=== PATIENT | female | born 1940 | race Caucasian/White ===

== ENCOUNTER 2019-04-20 12:02 | Observation (INO) | payer MEDICARE, OTHER ==
[~2019-04-20] VITALS: Ht 162.6 cm; Wt 65.0 kg
[~2019-04-20 12:02] MED LIST: ALLO100T25 PO; ATE25T PO; FOLI0.4T2 PO; GABA-330 PO; METH2.5T55 PO; OSC500T PO; PROC5TAB56 PO; TRAM50TA2 PO; ZES10T PO; ZOC40T PO
--- NOTE | 2019-04-20 12:33 | NUR ---
PATIENT REPORTS HAVING THE "FLU" 3 WEEKS AGO, AROUND THE SAME TIME HER "HIGH" HEART RATE BOUTS STARTED. PATIENT'S DAUGHTER REPORTS THAT AT THE TIMES OF HER FEELING THE HIGH HEART RATE: DAUGHTER TOOK HER BP AND HR: THE HIGHEST HR WAS 109
[2019-04-20] MEDS ORDERED: aspirin 81mg tab.chew PO ONE (12:45)
[2019-04-20 13:07] LABS: BASOPHILS # (AUTO) 0.1 X10'3 (0-0.2); BASOPHILS % (AUTO) 1.4 % (0-1); EOSINOPHILS # (AUTO) 0.2 X10'3 (0-0.9); EOSINOPHILS % (AUTO) 3.2 % (0-6); HEMATOCRIT 38.1 % (35.0-45.0); HEMOGLOBIN 12.7 g/dl (12.0-16.0); LYMPHOCYTES # (AUTO) 2.9 X10'3 (1.1-4.8); LYMPHOCYTES % (AUTO) 43.1 % (21-51); MEAN CORPUSCULAR HEMOGLOBIN 33.5 PG (27.0-31.0); MEAN CORPUSCULAR HGB CONC 33.4 g/dL (33.0-36.5); MEAN CORPUSCULAR VOLUME 100.6 FL (78-98); MEAN PLATELET VOLUME 7.4 FL (7.4-10.4); MONOCYTES # (AUTO) 0.6 X10'3 (0-0.9); MONOCYTES % (AUTO) 8.8 % (2-12); NEUTROPHILS # (AUTO) 2.9 X10'3 (1.8-7.7); NEUTROPHILS % (AUTO) 43.5 % (42-75); PLATELET COUNT 302 X10'3 (140-440); RED BLOOD COUNT 3.79 X10'6 (4.20-5.60); RED CELL DISTRIBUTION WIDTH 14.9 % (11.5-14.5); WHITE BLOOD COUNT 6.8 X10'3 (4.5-11.0)
[2019-04-20 13:20] LABS: PARTIAL THROMBOPLASTIN TIME 25 SECONDS (22-32)
[2019-04-20 13:21] LABS: ALANINE AMINOTRANSFERASE 29 U/L (12-78); ALBUMIN 3.8 G/DL (3.4-5.0); ALBUMIN/GLOBULIN RATIO 1.1 (1.1-1.5); ALKALINE PHOSPHATASE 55 IU/L (46-116); ANION GAP 8 (8-16); ASPARTATE AMINO TRANSFERASE 40 U/L (10-37); BILIRUBIN,TOTAL 0.4 MG/DL (0.1-1.0); BLOOD UREA NITROGEN 16 MG/DL (7-18); CALCIUM 9.2 MG/DL (8.5-10.1); CHLORIDE 108 MMOL/L (99-107); CREATININE 1.14 MG/DL (0.40-0.90); GLUCOSE 89 MG/DL (70-104); POTASSIUM 4.6 MMOL/L (3.5-5.1); SODIUM 142 MMOL/L (135-145); TOTAL CARBON DIOXIDE 25.7 MMOL/L (24-32); TOTAL PROTEIN 7.3 G/DL (6.4-8.2); eGFR 46 ML/MIN
[2019-04-20 13:32] LABS: MAGNESIUM 2.3 MG/DL (1.5-2.4)
[2019-04-20] MEDS ORDERED: acetaminophen 325mg tablet PO PRN (14:15)
[2019-04-20] MEDS ORDERED: magnesium Cl slow-release 64mg tablet PO PRN (14:15)
[2019-04-20] MEDS ORDERED: magnesium 2GM in 50ml NS 50 ML IV PRN (14:15)
[2019-04-20] MEDS ORDERED: magnesium hydroxide 30ml (MOM) UD suspension PO PRN (14:15)
[2019-04-20] MEDS ORDERED: mag hydrox/Alum hydrox/simeth 30ml oral suspension PO PRN (14:15)
[2019-04-20] MEDS ORDERED: ondansetron/PF 4mg/2ml inj IV PRN (14:15)
[2019-04-20] MEDS ORDERED: potassium CL 10mEq/100ml bag 100 ML IV PRN ×2 (14:15)
[2019-04-20] MEDS ORDERED: potassium Cl 20 mEq SR tablet PO PRN ×2 (14:15)
[2019-04-20] MEDS ORDERED: magnesium 4gm in 100ml NS 100 ML IV PRN (14:15)
--- NOTE | 2019-04-20 14:19 | NUR ---
GAVE MED LIST TO PHARMACIST
[2019-04-20] MEDS ORDERED: FOLI1TAB16 PO (14:22)
[2019-04-20] MEDS ORDERED: CHOL10002 PO (14:22)
[2019-04-20] MEDS ORDERED: ALPR0.5T8 PO (14:22)
[2019-04-20] MEDS ORDERED: ALLO100T PO (14:23)
--- NOTE | 2019-04-20 15:44 | NUR ---
PHONE REPORT TO BEKA FLEMING, PATIENT GOING TO ROOM 356B.
[2019-04-20 16:16] VITALS: BP 131/66
--- NOTE | 2019-04-20 16:22 | NUR ---
Patient in room [facility]. I have received report from bradley FLEMING and had the opportunity to ask questions and assume patient care.
--- NOTE | 2019-04-20 17:48 | NUR ---
patient settled in room 356b, is for oesophagram tomorrow 04/21/19. Appears stable, daughter at bedside.
[2019-04-20 18:00] VITALS: BP 115/69
[2019-04-20] MEDS ORDERED: traMADol 50MG tablet PO PRN (18:50)
[2019-04-20] MEDS ORDERED: ALPRAZolam 0.5mg tablet PO PRN (18:50)
[2019-04-20] MEDS ORDERED: atorvastatin 20mg tablet PO SCH (21:00)
[2019-04-20] MEDS ORDERED: allopurinol 100mg tablet PO SCH (21:00)
[2019-04-20] MEDS: gabapentin 400mg capsule PO SCH (21:13)
[2019-04-20] MEDS ORDERED: temazepam 15mg capsule PO PRN (22:25)
[2019-04-20 23:28] VITALS: BP 94/53
[2019-04-21] MEDS: normal saline 1000ml 1,000 ML IV SCH ×2 (00:38→10:14)
[2019-04-21 00:59] LABS: BASOPHILS % (AUTO) 0.6 % (0-1); EOSINOPHILS # (AUTO) 0.3 X10'3 (0-0.9); EOSINOPHILS % (AUTO) 4.4 % (0-6); HEMATOCRIT 34.9 % (35.0-45.0); HEMOGLOBIN 11.7 g/dl (12.0-16.0); MEAN CORPUSCULAR HEMOGLOBIN 33.1 PG (27.0-31.0); MEAN CORPUSCULAR HGB CONC 33.4 g/dL (33.0-36.5); MEAN CORPUSCULAR VOLUME 99.1 FL (78-98); MEAN PLATELET VOLUME 7.4 FL (7.4-10.4); MONOCYTES # (AUTO) 0.8 X10'3 (0-0.9); MONOCYTES % (AUTO) 10.7 % (2-12); NEUTROPHILS # (AUTO) 3.4 X10'3 (1.8-7.7); NEUTROPHILS % (AUTO) 44.3 % (42-75); PLATELET COUNT 282 X10'3 (140-440); RED BLOOD COUNT 3.52 X10'6 (4.20-5.60); WHITE BLOOD COUNT 7.6 X10'3 (4.5-11.0)
[2019-04-21 01:04] LABS: CLARITY,URINE CLEAR (Clear); COLOR,URINE YELLOW (Yellow); GLUCOSE, URINE NEGATIVE (Neg); KETONES,URINE NEGATIVE (Neg); LEUKOCYTE ESTERASE ,URINE NEGATIVE (Neg); NITRITES, URINE POSITIVE (Neg); OCCULT BLOOD,URINE NEGATIVE (Neg); PROTEIN,URINE NEGATIVE (Neg); UROBILINOGEN,URINE 0.2 E.U/dL (0.2-1.0)
[2019-04-21 01:11] LABS: ALANINE AMINOTRANSFERASE 25 U/L (12-78); ALBUMIN 3.4 G/DL (3.4-5.0); ALBUMIN/GLOBULIN RATIO 1.2 (1.1-1.5); ALKALINE PHOSPHATASE 52 IU/L (46-116); ANION GAP 10 (8-16); ASPARTATE AMINO TRANSFERASE 31 U/L (10-37); BILIRUBIN,TOTAL 0.4 MG/DL (0.1-1.0); BLOOD UREA NITROGEN 20 MG/DL (7-18); BUN/CREATININE RATIO 16.4 (6.6-38.0); CALCIUM 8.6 MG/DL (8.5-10.1); CHLORIDE 107 MMOL/L (99-107); CREATININE 1.22 MG/DL (0.40-0.90); GLUCOSE 99 MG/DL (70-104); POTASSIUM 4.1 MMOL/L (3.5-5.1); SODIUM 142 MMOL/L (135-145); TOTAL PROTEIN 6.3 G/DL (6.4-8.2); eGFR 42 ML/MIN
[2019-04-21 01:12] LABS: UA COLLECTION TYPE VOIDED
[2019-04-21 01:14] LABS: CHOL/HDL RATIO 2.3 (0.00-4.99); CHOLESTEROL 133 MG/DL (0-200); HDL CHOLESTEROL 57 MG/DL (35-60); LDL CHOLESTEROL 69 MG/DL (50-100); MAGNESIUM 1.9 MG/DL (1.5-2.4); TRIGLYCERIDES 65 MG/DL (20-135)
[2019-04-21 01:21] LABS: BACTERIA,URINE 4+ /HPF (Neg); RBC,URINE NONE SEEN /HPF (0-2); SQUAMOUS EPITHELIAL CELL,UR FEW /LPF (FEW); WBC,URINE 0-4 /HPF (0-4)
[2019-04-21] MEDS ORDERED: CefTRIAXone/D5W-Rocephin 1gm 50 ML IV ONE (03:35)
--- NOTE | 2019-04-21 06:30 | NUR ---
Problems reprioritized. Patient report given, questions answered & plan of care reviewed with BERNADETTE Correa.
--- NOTE | 2019-04-21 06:30 | NUR ---
Patient in room [facility] 356. I have received report from Dominique Boothe RN and had the opportunity to ask questions and assume patient care.
[2019-04-21 07:20] VITALS: BP 103/64
[2019-04-21] MEDS ORDERED: folic acid 1mg tablet PO SCH (08:00)
[2019-04-21] MEDS ORDERED: enoxaparin 40mg/0.4ml syringe SQ SCH (08:00)
[2019-04-21] MEDS ORDERED: lisinopril 10 MG tablet PO SCH (08:00)
[2019-04-21] MEDS ORDERED: vitamin D (cholecalciferol) 1,000 unit tablet PO SCH (08:00)
[2019-04-21] MEDS ORDERED: calcium carbonate 500mg tablet PO SCH (08:00)
[2019-04-21] MEDS ORDERED: K and/or MAG REPLACEMENT MC SCH (08:00)
--- NOTE | 2019-04-21 09:39 | NUR ---
Discussed with Dr. Deng the procedures scheduled for patient. Received order to cancel Esophogram and bedside swallow and to provide patient HH diet. Will continue to monitor.
[2019-04-21 09:50] VITALS: BP_SYST 107; BP_SYST 110; BP_SYST 114; BP_DIAS 62; BP_DIAS 71; BP_DIAS 73
[2019-04-21] MEDS ORDERED: carVEDilol 3.125mg tablet PO SCH (09:50)
--- NOTE | 2019-04-21 10:00 | NUR ---
Spoke with Dr. Deng, Chest CT cancelled as well. Lisinopril cancelled and Coreg to be initiated per Dr. Deng order. Will continue to monitor.
[2019-04-21] MEDS: gabapentin 400mg capsule PO SCH (10:18)
[2019-04-21 11:30] VITALS: BP 107/59
[2019-04-21] MEDS ORDERED: COR3.125T PO (11:45)
--- NOTE | 2019-04-21 12:31 | NUR ---
Patient is discharged per MD order, received discharge instructions and IV cannula removed with cannula intact. Family is present at bedside, will be taking her home. Patient and family notified to tell staff when ready to leave due to patient requesting to eat lunch. Patient is alert and oriented and stable for discharge.
--- NOTE | 2019-04-21 13:08 | NUR ---
Patient Left at 1255 by wheelchair with auxillary, daughter in lobby waiting. Belongings with patient and family.
[2019-04-22] MEDS ORDERED: CefTRIAXone/D5W-Rocephin 1gm 50 ML IV SCH (08:00)
== END 2019-04-21 12:57 | disposition home health service (06) ==
LOC: ER 12:02 → SUR 3N 15:53
PROVIDERS: ADMIT Family Medicine; ATTEND Family Medicine
DX: R07.89 Other chest pain (principal); R00.2 Palpitations; J44.9 Chronic obstructive pulmonary disease, unspecified; M85.80 Other specified disorders of bone density and structure, unspecified site; R94.31 Abnormal electrocardiogram [ECG] [EKG]; M06.9 Rheumatoid arthritis, unspecified; E78.5 Hyperlipidemia, unspecified; I10 Essential (primary) hypertension; G62.9 Polyneuropathy, unspecified; M10.9 Gout, unspecified; E89.0 Postprocedural hypothyroidism; Z90.710 Acquired absence of both cervix and uterus; Z90.49 Acquired absence of other specified parts of digestive tract; Z90.81 Acquired absence of spleen; Z96.651 Presence of right artificial knee joint; Z87.891 Personal history of nicotine dependence; Z86.018 Personal history of other benign neoplasm; Z79.899 Other long term (current) drug therapy
CPT/HCPCS: 36415; 71045; 76536; 80053; 80061; 81001; 83735; 83880; 84439; 84443; 84484; 85025; 85610; 85730; 87077; 87081; 87088; 87186; 93005; 93306; 96365; 96372; 99284; G0378; J0696; J7030; J1650

== ENCOUNTER 2022-07-12 05:26 | Inpatient (IN) | payer MEDICARE ==
[2022-07-05 17:21] LABS: ALBUMIN 3.8 G/DL (3.4-5.0); ALBUMIN/GLOBULIN RATIO 1.2 (1.1-1.5); ALKALINE PHOSPHATASE 71 IU/L (46-116); BLOOD UREA NITROGEN 24 MG/DL (7-18); BUN/CREATININE RATIO 20.9 (6.6-38.0); CALCIUM 9.2 MG/DL (8.5-10.1); CHLORIDE 106 MMOL/L (99-107); CREATININE 1.15 MG/DL (0.40-0.90); PRE OP ALT 24 U/L (30-65); PRE OP ANION GAP 8 (8-16); PRE OP AST 27 U/L (10-37); PRE OP BILIRUB, TOTAL 0.2 MG/DL (0.0-1.0); PRE OP GLUCOSE 98 MG/DL (70-104); PRE OP POTASSIUM 4.1 MMOL/L (3.4-5.1); PRE OP SODIUM 140 MMOL/L (135-145); TOTAL CARBON DIOXIDE 25.7 MMOL/L (24-32); TOTAL PROTEIN 7.1 G/DL (6.4-8.2); eGFR 45 ML/MIN
[2022-07-05 17:30] LABS: BASOPHILS # (AUTO) 0.1 X10'3 (0-0.2); BASOPHILS % (AUTO) 0.7 % (0-1); EOSINOPHILS # (AUTO) 0.4 X10'3 (0-0.9); EOSINOPHILS % (AUTO) 4.4 % (0-6); LYMPHOCYTES % (AUTO) 36.2 % (21-51); MEAN CORPUSCULAR HEMOGLOBIN 32.4 PG (27.0-31.0); MEAN CORPUSCULAR HGB CONC 33.2 g/dL (33.0-36.5); MEAN CORPUSCULAR VOLUME 97.4 FL (78-98); MEAN PLATELET VOLUME 7.9 FL (7.4-10.4); MONOCYTES % (AUTO) 12.3 % (2-12); NEUTROPHILS # (AUTO) 3.9 X10'3 (1.8-7.7); NEUTROPHILS % (AUTO) 46.4 % (42-75); PRE OP HEMATOCRIT 37.7 % (35.0-45.0); PRE OP HEMOGLOBIN 12.5 g/dL (12.0-16.0); PRE OP PLATELET COUNT 290 X10'3 (140-440); RED BLOOD COUNT 3.87 X10'6 (4.20-5.60)
[~2022-07-12] VITALS: Ht 162.6 cm; Wt 34.4 kg
[2022-07-12] VITALS (19 sets, daily range): BP systolic 85–142; BP diastolic 56–80
[~2022-07-12 05:26] MED LIST changes: -ALLO100T25 PO; +ALPR0.5T8 PO; -ATE25T PO; +CARV6.253 PO; -FOLI0.4T2 PO; -GABA-330 PO; +GABA600T13 PO; -OSC500T PO; -PROC5TAB56 PO; -ZES10T PO
[2022-07-12] MEDS ORDERED: DOCUMENT DATE & TIME OF BETA-BLOCKER PO ONE (05:30)
[2022-07-12] MEDS ORDERED: vancomycin/NS 1 GM in NS 250 ML IV ONE (05:30)
[2022-07-12] MEDS ORDERED: tranexamic acid inj. 1,000 MG in normal saline IV soln 100ML IV ONE (05:30)
[2022-07-12] MEDS ORDERED: metoclopramide 5 mg/ml inj IV ONE (05:30)
[2022-07-12] MEDS ORDERED: gabapentin 300mg capsule PO ONE (05:30)
[2022-07-12] MEDS ORDERED: acetaminophen 325mg tablet PO ONE (05:30)
[2022-07-12] MEDS ORDERED: oxyCODONE SR 10mg (sust. release) tab -2 tabs (20mg) PO ONE (05:30)
[2022-07-12] MEDS ORDERED: celeCOXIB 100mg capsule PO ONE (05:30)
[2022-07-12] MEDS ORDERED: famotidine 20mg tablet PO ONE (05:30)
[2022-07-12] MEDS ORDERED: ceFAZolin inj. 2,000 MG in dextrose 5%-water 100 ML IV ONE (05:30)
[2022-07-12] MEDS ORDERED: ALPRAZolam 0.5mg tablet PO PRN (06:30)
[2022-07-12] MEDS ORDERED: HYDROmorphone inj. 0.5 MG/0.5 ML DISP.SYRIN IV PRN (06:30)
[2022-07-12] MEDS ORDERED: HYDROcodone/acetaminophen 10/325mg tab PO PRN ×2 (06:30)
[2022-07-12] MEDS ORDERED: HYDROmorphone 1 mg/ml syringe IV PRN (06:30)
[2022-07-12] MEDS ORDERED: diphenhydrAMINE 25mg capsule PO PRN ×2 (06:30)
[2022-07-12] MEDS ORDERED: ondansetron/PF 4mg/2ml inj IV PRN ×2 (06:30→08:10)
[2022-07-12] MEDS ORDERED: naloxone 0.4 mg/ml inj IV PRN (06:30)
[2022-07-12] MEDS ORDERED: magnesium hydroxide 30ml (MOM) UD suspension PO PRN (06:30)
[2022-07-12] MEDS ORDERED: bisacodyl 10mg suppository rectal RC PRN (06:30)
[2022-07-12] MEDS ORDERED: epiNEPHrine 1 mg/ml inj ONE (06:46)
[2022-07-12] MEDS ORDERED: ROPIVAcaine 0.5% (5mg/ml) 30ml vial ONE (06:46)
[2022-07-12] MEDS ORDERED: cloNIDine hcl/PF 100mcg/ml inj ONE (06:46)
[2022-07-12] MEDS ORDERED: vancomycin 1,000mg inj ONE (06:46)
[2022-07-12] MEDS ORDERED: ketorolac trometh. 30mg/ml inj. ONE (06:46)
[2022-07-12] MEDS: ringers solution, lacted 1,000 ML IV SCH ×2 (06:55→12:19)
--- NOTE | 2022-07-12 07:00 | NUR ---
PT STATES SHE BATHED FOR THE LAST 5 DAYS AND THIS MORNING PER [employer] RECOMMENDATIONS, PT DENIES SENSATION DEFICITS. Addendum: 07/12/22 at 1101 by Mia Cantrell RN Amended: Links added. Addendum: 07/12/22 at 1104 by Mia Cantrell RN LATE ENTRY- PT STATES SHE READ HER HANDBOOK ON [employer] FOR HOME.
[2022-07-12] MEDS ORDERED: MIDAZolam 1 MG/ML 5ML VIAL ONE (07:19)
[2022-07-12] MEDS ORDERED: FENTANYL CITRATE/PF 50 MCG/1 ML VIAL ONE (07:19)
[2022-07-12] MEDS ORDERED: propofol inj 20 ML IV ONE (07:36)
[2022-07-12] MEDS ORDERED: ringers solution, lacted 1,000 ML IV SCH (08:10)
[2022-07-12] MEDS ORDERED: meperidine/PF 25mg/ml syringe IV PRN ×2 (08:10)
[2022-07-12] MEDS ORDERED: morphine 2 MG/ML inj. syringe IV PRN (08:10)
[2022-07-12] MEDS ORDERED: ROPIVAcaine 0.2%/PF PUMP/bolus 545 ML ADDCANAL SCH (08:10)
[2022-07-12] MEDS ORDERED: proCHLORperazine 10 MG/2 ml inj IV PRN (08:10)
[2022-07-12] MEDS ORDERED: ROPIVAcaine 0.2% (10 MG/5 ML) BOLUS INJECTION ADDCANAL PRN (08:10)
--- NOTE | 2022-07-12 09:02 | NUR ---
Received from OR via BED, accompanied by Anesthesiologist and report given by LORIE Anesthesiologist. PATIENT WAKING UP, LEFT KNEE PAIN NOTED-WILL MEDICATE, V/S WNL, SCD ON, 20G TO RIGHT FOREARM, SHAYAN DRESSING to LEFT KNEE C/D/I with POWDER ICE PACK. ON-Q CATHETER NOTED WITH C/D/I AND WILL START ROPIVACAINE DRIP AT 2 CC/HR. Addendum: 07/12/22 at 0958 by Alan Marroquin RN Amended: Links added.
[2022-07-12] MEDS: meperidine/PF 25mg/ml syringe IV PRN ×2 (09:07→09:23)
[2022-07-12] MEDS: morphine 4 MG/ML inj SYRINge IV PRN ×2 (09:16→09:33)
--- NOTE | 2022-07-12 10:17 | NUR ---
ALL DISCHARGE CRITERIA HAS BEEN MET. VSS, PAIN AT A TOLERABLE LEVEL, ABLE TO SAFELY AMBULATE AND TRANSFER SELF. IV TAKEN OUT WITHOUT ANY COMPLICATIONS. ALL DISCHARGE INSTRUCTIONS COVERED WITH PATIENT AND ALL QUESTIONS ANSWERED. PATIENT TAKEN OUT VIA WHEELCHAIR WITH ALL BELONGINGS TO PERSONAL VEHICLE WHERE FAMILY DROVE PATIENT HOME. Addendum: 07/12/22 at 1029 by Alan Marroquin RN Amended: Links added. Addendum: 07/12/22 at 1104 by Alan Marroquin RN PATIENT HAS MET ALL CRITERIA FOR TRANSFER TO THE SURGICAL FLOOR. VSS. DRESSINGS INTACT. BED LOW, CALL LIGHT PRESENT AND 2 RAILS UP. RN PRESENT TO ACCEPT CARE OF PATIENT AND REPORT HAS BEEN CALLED. ALL QUESTIONS ANSWERED TO ACCEPTING RN.
[2022-07-12] MEDS ORDERED: tranexamic acid inj. 660 MG in normal saline 100ml IV soln 93.4 ML IV ONE (12:00)
[2022-07-12] MEDS: potassium cl 20mEq in 1/2 NS 1,000 ML IV SCH ×3 (12:31→21:55)
[2022-07-12] MEDS: ceFAZolin/D5W- 1GM premix 50 ML IV SCH (16:36)
[2022-07-12] MEDS: carvedilol 6.25mg tablet PO SCH (19:47)
[2022-07-12] MEDS: gabapentin 300mg capsule PO SCH (19:50)
[2022-07-12] MEDS: ascorbic acid 500mg tablet PO SCH (19:51)
[2022-07-12] MEDS ORDERED: vancomycin/NS 1 GM ADD-VANTAGE 250 ML IV SCH (20:00)
[2022-07-12] MEDS ORDERED: atorvastatin 20mg tablet PO SCH (21:00)
[2022-07-12] MEDS ORDERED: sennosides 8.6mg tablet PO SCH (21:00)
[2022-07-12] MEDS: acetaminophen 325mg tablet PO PRN (21:30)
[2022-07-13] MEDS: ceFAZolin/D5W- 1GM premix 50 ML IV SCH (00:11)
[2022-07-13 02:00] VITALS: BP 120/55
[2022-07-13 06:00] VITALS: BP 130/76
--- NOTE | 2022-07-13 06:10 | NUR ---
Problems reprioritized. Patient report given, questions answered & plan of care reviewed with Lyndsey FLEMING. Addendum: 07/13/22 at 0611 by Silvana Dominguez RN Amended: Links added.
[2022-07-13] MEDS: potassium cl 20mEq in 1/2 NS 1,000 ML IV SCH (06:30)
[2022-07-13 06:31] LABS: BASOPHILS % (AUTO) 0.3 % (0-1); EOSINOPHILS # (AUTO) 0.3 X10'3 (0-0.9); EOSINOPHILS % (AUTO) 3.8 % (0-6); HEMATOCRIT 33.1 % (35.0-45.0); HEMOGLOBIN 10.8 g/dl (12.0-16.0); LYMPHOCYTES # (AUTO) 1.4 X10'3 (1.1-4.8); LYMPHOCYTES % (AUTO) 19.1 % (21-51); MEAN CORPUSCULAR HEMOGLOBIN 32.2 PG (27.0-31.0); MEAN CORPUSCULAR HGB CONC 32.6 g/dL (33.0-36.5); MEAN CORPUSCULAR VOLUME 98.5 FL (78-98); MONOCYTES # (AUTO) 1.3 X10'3 (0-0.9); MONOCYTES % (AUTO) 17.7 % (2-12); NEUTROPHILS # (AUTO) 4.2 X10'3 (1.8-7.7); NEUTROPHILS % (AUTO) 59.1 % (42-75); PLATELET COUNT 254 X10'3 (140-440); RED BLOOD COUNT 3.36 X10'6 (4.20-5.60); RED CELL DISTRIBUTION WIDTH 14.8 % (11.5-14.5); WHITE BLOOD COUNT 7.1 X10'3 (4.5-11.0)
[2022-07-13 07:44] LABS: ANION GAP 6 (8-16); CHLORIDE 108 MMOL/L (99-107); POTASSIUM 4.3 MMOL/L (3.5-5.1); SODIUM 141 MMOL/L (135-145); TOTAL CARBON DIOXIDE 26.9 MMOL/L (24-32)
[2022-07-13] MEDS: carvedilol 6.25mg tablet PO SCH (07:56)
[2022-07-13] MEDS: gabapentin 300mg capsule PO SCH (07:57)
[2022-07-13] MEDS: ascorbic acid 500mg tablet PO SCH (07:57)
[2022-07-13] MEDS ORDERED: multivitamins, therapeutics tablet PO SCH (08:00)
[2022-07-13] MEDS: acetaminophen 325mg tablet PO PRN (08:03)
[2022-07-13] MEDS ORDERED: aspirin 325mg tablet PO SCH (08:30)
--- NOTE | 2022-07-13 11:03 | NUR ---
Joint surgery consult: Pt s/p L knee surgery this admit per EMR. Pt/family seen by RD for written/verbal high protein diet ed w/ RD contact information provided. Noted pt BMI 13.0 using 34.4kg wt however this wt is error as initial scaled wt 65.71kg making true BMI 24.9. Pt appears WD/WN during RD visit and family reports has protein drinks at home to have in addition to meals. RD encouraged pt/family to contact dietitian's office if further questions/concerns. Addendum: 07/13/22 at [address] Amended: Links added.
--- NOTE | 2022-07-13 11:58 | NUR ---
Patient was discharged at 1125 with instructions and verbalizing understanding of instructions, in wheelchair accompanied by nursing staff and family. All lines and tubes including PIV with cannula intact have been removed. Education has been provided at bedside and all questions have been answered. Patient is stable and appropriate for discharge.
[2022-07-13] MEDS ORDERED: celeCOXIB 100mg capsule PO SCH (20:00)
== END 2022-07-13 11:58 | disposition home or self-care (01) | DRG 470 ==
LOC: PAS 05:26 → PAS IN 07:38 → EDSTATUS 10:00 → SUR 3N 10:32
PROVIDERS: ADMIT Orthopaedic Surgery; ATTEND Orthopaedic Surgery
PROC: 0SRD0J9 Replacement of Left Knee Joint with Synthetic Substitute, Cemented, Open Approach (ICD-10-PCS; principal; 2022-07-12 07:18)
DX: M17.12 Unilateral primary osteoarthritis, left knee (principal); Z79.899 Other long term (current) drug therapy
CPT/HCPCS: 36415; 73560; 80051; 80053; 82948; 85025; 86885; 86900; 86901; 87081; 93005; 97110; 97161; 97530; A4215; A4615; A7000; C1713; C1776; G0378; J0171; J0690; J0735; J1885; J2175; J2250; J2270; J2405; J2704; J2765; J2795; J3010; J3370; J3480; J3490; J7060; J7120

== ENCOUNTER 2023-10-26 09:54 | Emergency (ER) | payer MEDICARE, OTHER ==
[~2023-10-26] VITALS: Ht 162.6 cm; Wt 64.5 kg
[2023-10-26 09:55] VITALS: TEMP 98
[2023-10-26 10:28] VITALS: BP 116/67; PULSE 57; RESP 17; O2SAT 94
[2023-10-26 11:49] LABS: BASOPHILS % (AUTO) 0.6 % (0-1); EOSINOPHILS # (AUTO) 0.3 X10'3 (0-0.9); EOSINOPHILS % (AUTO) 3.1 % (0-6); HEMATOCRIT 37.2 % (35.0-45.0); HEMOGLOBIN 12.4 g/dl (12.0-16.0); LYMPHOCYTES # (AUTO) 2.5 X10'3 (1.1-4.8); MEAN CORPUSCULAR HEMOGLOBIN 33.6 PG (27.0-31.0); MEAN CORPUSCULAR HGB CONC 33.4 g/dL (33.0-36.5); MEAN CORPUSCULAR VOLUME 100.6 FL (78-98); MEAN PLATELET VOLUME 7.5 FL (7.4-10.4); MONOCYTES # (AUTO) 0.9 X10'3 (0-0.9); MONOCYTES % (AUTO) 10.9 % (2-12); NEUTROPHILS # (AUTO) 4.9 X10'3 (1.8-7.7); NEUTROPHILS % (AUTO) 56.4 % (42-75); PLATELET COUNT 211 X10'3 (140-440); RED BLOOD COUNT 3.69 X10'6 (4.20-5.60); RED CELL DISTRIBUTION WIDTH 15.1 % (11.5-14.5); WHITE BLOOD COUNT 8.7 X10'3 (4.5-11.0)
[2023-10-26 12:00] LABS: ALBUMIN 3.1 G/DL (3.4-5.0); ANION GAP 6 (8-16); BLOOD UREA NITROGEN 17 MG/DL (7-18); BUN/CREATININE RATIO 14.2 (10.0-20.0); CHLORIDE 104 MMOL/L (99-107); GLUCOSE 87 MG/DL (70-104); LIPASE 184 U/L (16-77); POTASSIUM 4.5 MMOL/L (3.5-5.1); SODIUM 139 MMOL/L (135-145); TOTAL CARBON DIOXIDE 29.3 MMOL/L (24-32); eCRCL 30 ML/MIN; eGFR 43 ML/MIN
== END 2023-10-26 12:38 | disposition home or self-care (01) ==
LOC: ER 09:55
DX: S20.211A Contusion of right front wall of thorax, initial encounter (principal); S86.912A Strain of unspecified muscle(s) and tendon(s) at lower leg level, left leg, initial encounter; I10 Essential (primary) hypertension; G89.29 Other chronic pain; M06.9 Rheumatoid arthritis, unspecified; W19.XXXA Unspecified fall, initial encounter; Y93.01 Activity, walking, marching and hiking; Y92.89 Other specified places as the place of occurrence of the external cause; Y99.8 Other external cause status
CPT/HCPCS: 36415; 71111; 71250; 73560; 74176; 80048; 83690; 84484; 85025; 93005; 99285

== ENCOUNTER 2023-11-06 09:48 | Emergency (ER) | payer MEDICARE, OTHER ==
[~2023-11-06] VITALS: Ht 162.6 cm; Wt 64.4 kg
[2023-11-06 09:57] VITALS: BP 146/80; PULSE 56; O2SAT 96
[2023-11-06] MEDS ORDERED: LIDO700A47 TOP (11:15)
[2023-11-06] MEDS ORDERED: NAPR-56 PO (11:15)
[2023-11-06] MEDS: HYDROcodone/acetaminophen 10/325mg tab PO ONE (11:19)
[2023-11-06] MEDS ORDERED: HYDR-3965 PO (11:19)
[2023-11-06 11:24] VITALS: RESP 15
[2023-11-06 11:39] VITALS: TEMP 98
== END 2023-11-06 11:42 | disposition home or self-care (01) ==
LOC: ER 09:49
DX: S20.211D Contusion of right front wall of thorax, subsequent encounter (principal); I10 Essential (primary) hypertension; G89.29 Other chronic pain; M06.9 Rheumatoid arthritis, unspecified; W18.30XD Fall on same level, unspecified, subsequent encounter
CPT/HCPCS: 71046; 99284

== ENCOUNTER 2024-11-25 13:25 | Emergency (ER) | payer MEDICARE, OTHER ==
[~2024-11-25] VITALS: Ht 162.6 cm; Wt 65.0 kg
[~2024-11-25 13:25] MED LIST changes: +GABA-1405 PO; -GABA600T13 PO; +LIDO700A47 TOP
[2024-11-25 13:29] VITALS: TEMP 97.1
[2024-11-25 13:54] LABS: BILIRUBIN,URINE NEGATIVE (Neg); CLARITY,URINE CLEAR (Clear); GLUCOSE, URINE NEGATIVE (Neg); KETONES,URINE TRACE mg/dl (Neg); LEUKOCYTE ESTERASE ,URINE NEGATIVE (Neg); NITRITES, URINE NEGATIVE (Neg); OCCULT BLOOD,URINE NEGATIVE (Neg); PROTEIN,URINE NEGATIVE (Neg); UROBILINOGEN,URINE 0.2 E.U/dL (0.2-1.0)
[2024-11-25 13:58] LABS: COLOR,URINE DARK YELLOW (Yellow); UA COLLECTION TYPE CLN CATCH MIDSTREAM
[2024-11-25 14:36] LABS: BASOPHILS % (AUTO) 0.7 % (0-1); EOSINOPHILS # (AUTO) 0.1 X10'3 (0-0.9); EOSINOPHILS % (AUTO) 1.9 % (0-6); HEMATOCRIT 37.5 % (35.0-45.0); HEMOGLOBIN 12.6 g/dl (12.0-16.0); LYMPHOCYTES # (AUTO) 2.2 X10'3 (1.1-4.8); LYMPHOCYTES % (AUTO) 31.4 % (21-51); MEAN CORPUSCULAR HEMOGLOBIN 33.2 PG (27.0-31.0); MEAN CORPUSCULAR HGB CONC 33.5 g/dL (33.0-36.5); MEAN PLATELET VOLUME 7.8 FL (7.4-10.4); MONOCYTES % (AUTO) 13.6 % (2-12); NEUTROPHILS # (AUTO) 3.7 X10'3 (1.8-7.7); NEUTROPHILS % (AUTO) 52.4 % (42-75); PLATELET COUNT 252 X10'3 (140-440); RED BLOOD COUNT 3.79 X10'6 (4.20-5.60); RED CELL DISTRIBUTION WIDTH 14.8 % (11.5-14.5)
[2024-11-25 14:53] LABS: ALANINE AMINOTRANSFERASE 27 U/L (12-78); ALBUMIN 3.7 G/DL (3.4-5.0); ALBUMIN/GLOBULIN RATIO 1.2 (1.1-1.5); ALKALINE PHOSPHATASE 66 IU/L (46-116); ANION GAP 7 (8-16); ASPARTATE AMINO TRANSFERASE 28 U/L (10-37); BILIRUBIN,TOTAL 0.4 MG/DL (0.1-1.0); BLOOD UREA NITROGEN 16 MG/DL (7-18); BUN/CREATININE RATIO 17.6 (10.0-20.0); CHLORIDE 106 MMOL/L (99-107); CREATININE 0.91 MG/DL (0.40-0.90); GLUCOSE 61 MG/DL (70-104); LIPASE 137 U/L (16-77); SODIUM 141 MMOL/L (135-145); TOTAL CARBON DIOXIDE 27.9 MMOL/L (24-32); TOTAL PROTEIN 6.7 G/DL (6.4-8.2); eCRCL 38 ML/MIN; eGFR 59 ML/MIN
[2024-11-25] MEDS ORDERED: iohexol 300mg/ml 100ml inj. ONE (15:25)
[2024-11-25] MEDS ORDERED: DOXY-1 PO (16:48)
[2024-11-25] MEDS: phenazopyridine 100mg tablet PO ONE (18:55)
[2024-11-25] MEDS ORDERED: meperidine/PF 25mg/ml syringe IV ONE (19:50)
[2024-11-25 20:01] VITALS: BP 157/64; PULSE 65; O2SAT 98
[2024-11-25 20:19] VITALS: RESP 14
[2024-11-25] MEDS: meperidine/PF 100mg/ml syringe IV ONE (20:19)
== END 2024-11-25 20:30 | disposition home or self-care (01) ==
LOC: ER 13:26 → UNDOADMIN 19:10 → ED HOLD 19:10 → UNDODISIN 19:19
DX: K85.90 Acute pancreatitis without necrosis or infection, unspecified (principal); M54.9 Dorsalgia, unspecified; I10 Essential (primary) hypertension; M06.9 Rheumatoid arthritis, unspecified; Z98.890 Other specified postprocedural states
CPT/HCPCS: 36415; 74177; 74181; 80053; 81003; 83690; 85025; 96374; 99285; J2175; Q9967; G0378